=== PATIENT | male | born 1935 | race Caucasian/White ===

== ENCOUNTER → 2016-12-01 | Outpatient (CLI) | payer MEDICARE, BC ==
[~2016-12-01] MED LIST: AMBIEN PO; ASPIRIN PO; CALCIUM 500 + D1 TAB PO; CRANBERRY CONC; HCTZ PO; KEFLEX PO; LEXAPRO PO; LIPITOR PO; LISINOPRIL PO; LOPRESSOR PO; MIRAPEX PO; NIASPAN PO; WELCHOL625 MG PO; ZOCOR PO
--- NOTE | ~2016-12-01 | TH ---
Unit #: [id number] #: [id number] Patient: JOE JEAN BAPTISTE [id number] [address] [address] [id number] O MR#: [id number] NAME: JOE JEAN BAPTISTE. : 1935 SEX: M STUDY DATE/TIME: 12/01/2016 UNIT: CN ROOM: STUDY DESCRIPTION: Lexiscan stress test - Nuclear Attending Physician: Orly Wooten M.D. Referring Physician: Orly Wooten M.D. Primary Care Physician: Conchis Gonzáles Aprn CARDIOLOGY REPORT PROCEDURE PERFORMED Lexiscan Cardiolite stress test - Nuclear portion. PROCEDURE Using technetium 99m-labeled Cardiolite, rest and stress SPECT images were obtained. Multiple SPECT images were obtained in various views, including horizontal and vertical long axis and short axis views of the left ventricle. Images were obtained by gated SPECT method. The patient was administered 11.45 mCi of Cardiolite at rest. The patient was administered 35.2 mCi of Cardiolite after Lexiscan infusion was completed. On the stress images, there is normal perfusion noted. The rest images show normal perfusion. Comparing the rest and stress images, there is no stress-induced ischemia noted. The left ventricular ejection fraction is calculated to be 63%. There is no focal wall motion abnormality seen. CONCLUSION 1. No stress-induced ischemia noted. 2. The left ventricular ejection fraction is calculated to be 63%. 3. There is no focal wall motion abnormality seen. 4. The left ventricular size is small. 5. Normal Lexiscan Cardiolite stress test. Dictated by... Dragan Fiore/rita TD: 12/02/2016 08:11 JOB #: [id number] CARDIOLOGY REPORT X Orly Wooten MD <ELECTRONICALLY SIGNED> 04/10/17 1429 CARDIOLOGY REPORT
--- NOTE | ~2016-12-01 | ST ---
Unit #: [id number] #: [id number] Patient: JOE JEAN BAPTISTE [id number] [address] [address] [id number] O MR#: [id number] NAME: JOE JEAN BAPTISTE. : 1935 SEX: M STUDY DATE/TIME: 12/01/2016 UNIT: CN ROOM: STUDY DESCRIPTION: Stress Test Attending Physician: Orly Wooten M.D. Referring Physician: Orly Wooten M.D. Primary Care Physician: Conchis Gonzáles Aprn CARDIOLOGY REPORT REASON FOR EXAM Preop hip surgery clearance, anticipated surgery date of December 07, 2016. DESCRIPTION Baseline EKG shows sinus bradycardia, rate of 54 beats/minute, nonspecific ST-T wave abnormality. 0.4 mg of Lexiscan was injected per protocol followed by Cardiolite. The patient denied any complaints of chest pain throughout the infusion. However, he did complain of some shortness of breath, stomach cramping and nausea. There were no ST or T wave changes noted. There were no arrhythmias. The test was stopped secondary to protocol completion. IMPRESSION 1. Negative EKG portion of Lexiscan Cardiolite. 2. No ST or T wave changes suggestive of ischemia. 3. No chest pain. Did complain of shortness of breath, stomach cramping and nausea during the infusion. This resolved in the recovery period. 4. No arrhythmias were noted. 5. Please correlate with nuclear imaging. Dictated by... Phyllis PiresRSiennaNSienna for Orly Wooten M.D. LMW/df TD: 12/01/2016 11:40 JOB #: [id number] Unit #: [id number] #: [id number] Patient: JOE JEAN BAPTISTE CARDIOLOGY REPORT X Zainab Garcia APRN CARDIOLOGY REPORT
== END | disposition home or self-care (01) ==
LOC: CNUC 07:07
DX: Z01.810 Encounter for preprocedural cardiovascular examination (principal)
CPT/HCPCS: 78452; 93017; A9500; J2785

== ENCOUNTER 2017-03-17 12:34 | Emergency (ER) | payer MEDICARE, BC | END 2017-03-17 14:13 | disposition home or self-care (01) | LOC: SED 12:34 | DX: S61.241A Puncture wound with foreign body of left index finger without damage to nail, initial encounter (principal); I10 Essential (primary) hypertension; Z79.899 Other long term (current) drug therapy; W45.8XXA Other foreign body or object entering through skin, initial encounter; W20.8XXA Other cause of strike by thrown, projected or falling object, initial encounter; Y92.9 Unspecified place or not applicable | CPT/HCPCS: 24200; 90471; 90715; 99283 ==